=== PATIENT | male | born 1965 | race Two or more races ===

== ENCOUNTER 2018-10-06 11:43 | Emergency (ER) | payer OTHER ==
[~2018-10-06] VITALS: Ht 162.6 cm; Wt 65.8 kg
[2018-10-06 12:31] VITALS: BP 148/96
[2018-10-06] MEDS: KETOROLAC TROMETH 60MG/2ML VIAL IM ONE (13:19)
== END 2018-10-06 13:37 | disposition home or self-care (01) ==
LOC: ER 11:43
DX: M17.11 Unilateral primary osteoarthritis, right knee (principal)
CPT/HCPCS: 73562; 96372; 99283; J1885